=== PATIENT | female | born 1990 | race Caucasian/White ===

== ENCOUNTER 2023-08-28 08:44 | Outpatient (AMB) | payer OTHER, SELFPAY ==
--- NOTE | 2023-08-28 08:47 | MHC.PC.OV ---
Vital Signs 08/28/23 08:52 Height 5 ft 5 in Weight 272 lb BMI 45.3 BP 126/88 Blood Pressure Location Rt brachial Position Sitting Pulse 83 Pulse Source Pulse Oximeter Pulse Oximetry (%) 97 Oxygen Delivery Method Room Air Intake Visit Reasons: Manager Business Information Request PE Intake Note: Pt is here today as a New Patient/PE Is last menstrual period known: Yes Last menstrual period: 07/30/23 Allergies No Known Allergies Allergy (Verified 08/28/23 09:18) Medication List - Last Reconciled 08/28/23 by Niharika Argueta MD No Known Home Meds Tobacco use date assessed: 08/28/23 Dental Screening Dental Screen Date: 08/28/23 Did you have a dental visit in the last 12 months?: Yes Did you have a dental problem in the last 6 months where you did not have access to dental care?: No Was dental information given to patient?: Patient has dentist HPI Manager Business Information Request PE HPI Details 33-year-old lady with morbid obesity, here today to establish care with new PCP and for her physical exam. She has history of PCOS, hirsutism, previously on metformin and spironolactone, with last hemoglobin A1c at 5% on 09/11/2022. Stop metformin and spironolactone as it has not really been helping, and patient is trying to conceive by IVF. She also was initially on Ozempic and then switched to we go be for weight loss, lost approximately 70 lb, but had to discontinue medication as she was trying to conceive by IVF. She goes to [facility] in [place]. She had her cervical cancer screening and pelvic exam done at [facility]'s[facility] last 02/27/2022, which came back satisfactory for evaluation, negative for intraepithelial lesion or malignancy. She has been feeling well at present time with no other complaint. She is up-to-date with her hepatitis-B vaccination hepatitis-A MMR meaning coccal vaccine and varicella, had a negative PPD test 09/23/2018, has had COVID vaccination and flu shot but does not want to get updated COVID booster or the flu vaccine for this year. She is up-to-date with her Tdap, had it in 07/10/2016. [facility] Medical History Dental root implant present Morbid obesity PCOS (polycystic ovarian syndrome) Surgical History (Updated 08/28/23 @ 09:55 by Niharika Argueta MD) No pertinent past surgical history Family History Mother Gestational diabetes Coronary artery disease CVA (cerebral vascular accident) Maternal Uncle Diabetes mellitus Paternal Grandfather Coronary artery disease Social History (Updated 08/28/23 @ 10:07 by Niharika Argueta MD) Housing: House Patient Tobacco Use Status: Never used Tobacco e-Cigarette/Vaping Use: Never Used service: No Current occupational status: employed Sexually active: Yes Sexual orientation: Lesbian/Bates/Homosexual Cognitive needs: No Hearing needs: No Vision needs: Yes Female Reproductive History Menstrual Date of last menstrual period: 07/30/23 control method: none Date of last pap smear: 02/27/22 Questionnaire PHQ-9 Over the last 2 weeks, how often have you been bothered by any of the following problems? 1. Little interest or pleasure in doing things: not at all 2. Feeling down, depressed, or hopeless: not at all 3. Trouble falling or staying asleep, or sleeping too much: not at all 4. Feeling tired or having little energy: not at all 5. Poor appetite or overeating: not at all 6. Feeling bad about yourself - or that you are a failure or have let yourself or your family down: not at all 7. Trouble concentrating on things, such as reading the newspaper or watching television: not at all 8. Moving or speaking so slowly that other people could have noticed. Or the opposite - being so fidgety or restless that you have been moving around a lot more than usual: not at all 9. Thoughts that you would be better off or of hurting yourself in some way: not at all Total score: 0 Depression Screening Interpretation: Negative Depression Screening Done: Yes [id number] - PHQ-9 Billing: Yes Source: Developed by Drs. Sumit Lu, Dorcas Yates, Madi Morales and colleagues, with an educational sae from [employer]. Thrive Questionnaire Date Thrive assessed: 08/28/23 I am a: Patient What is your living situation today?: I have a steady place to live Within the past 12 months, did the food you bought not last and you didn't have the money to get more?: Never true Within the past 12 months, did you worry whether your food would run out before you got money to buy more?: Never true Do you have trouble paying for medicines?: No Do you have trouble getting transportation to medical appointments?: No Do you have trouble paying your heating and electricity bill?: No Do you have trouble taking care of your child, family member or friend?: No Do you have trouble with day-to-day activities such as bathing, preparing meals, shopping, managing finances, etc.?: No Are you currently unemployed and looking for a job?: No Are you interested in more education?: No AUDIT C Alcohol Use Questionnaire (AUDIT-C) 1. How often do you have a drink containing alcohol?: Monthly or less 2. How many drinks containing alcohol do you have on a typical day when you are drinking?: 1 or 2 3. How often do you have six or more drinks on one occasion?: Never Total Score: 1 JIMBO-7 AMB Questionnaire JIMBO-7 Date JIMBO - 7 assessed: 08/28/23 Feeling nervous, anxious, or on edge: 0 = Not at all Not being able to stop or control worryin = Not at all Worrying too much about different things: 0 = Not at all Trouble relaxin = Not at all Being so restless that it is hard to sit still: 0 = Not at all Becoming easily annoyed or irritable: 0 = Not at all Feeling afraid as if something awful might happen: 0 = Not at all Total JIMBO-7 score (0-4 normal; 5-9 mild; 10-14 moderate; 15-21 severe): 0 Source: Developed by Drs. Sumit Lu, Dorcas Yates, Madi Morales and colleagues, with an educational sae from [employer]. JIMBO-7 Assessment Billing JIMBO-7 Assessment Tool: JIMBO-7 Assessment 15077 Review of Systems Const Denies body aches, Denies fatigue, Denies fever(s), Denies headache(s) and Denies weakness Eyes Reports as per HPI ([facility], wears glasses when driving), Denies change in vision, Denies eye discharge, Denies itchy eyes and Reports requires corrective lenses ENT Denies dizziness, Denies headache(s), Denies nasal congestion, Denies nasal discharge and Denies sore throat Card Denies chest pain, Denies lightheadedness, Denies palpitations and Denies dyspnea Resp Denies chest congestion, Denies cough, Denies dyspnea and Denies wheezing GI Denies abdominal pain, Denies change in bowel habits and Denies heartburn Denies hematuria, Denies urinary frequency, Denies dysuria and Denies urinary urgency Musc Reports no additional complaints Skin/Breast Denies breast pain, Denies breast mass, Reports hirsutism (Chin area, arms), Denies lesions and Denies rash Neuro Denies dizziness, Denies headache(s) and Denies weakness Psych Reports no additional complaints Endo Denies fatigue, Denies polydipsia, Denies polyuria and Denies palpitations Smith/Lymph Denies easy bruising Aller/Immun Denies itchy eyes, Denies seasonal rhinorrhea and Denies wheezing Physical exam (Primary Care) Vital Signs: Last Vital Signs Pulse 83 08/28/23 08:52 BP 126/88 08/28/23 08:52 Pulse Ox 97 08/28/23 08:52 Oxygen Delivery Method Room Air 08/28/23 08:52 BMI result Body Mass Index 45.3 BMI Assessment/Plan discussion: High BMI High, discussed plan: lifestyle, weight reduction, dietary and physical activity Tobacco/Smoking Status: Tobacco use Status Tobacco use date assessed 08/28/23 08/28/23 09:05 Patient Tobacco Use Status Never used Tobacco 08/28/23 09:05 e-Cigarette/Vaping Use Never Used 08/28/23 09:05 PHQ-9: PHQ-9 Score PHQ-9: Total score 0 08/28/23 09:44 Depression Screening Interpretation: Negative Thrive Assessment: Date of Thrive Assessment Date Thrive assessed 08/28/23 08/28/23 09:13 Const General: no acute distress and alert Orientation/consciousness: patient oriented x3 HENMT Head: Yes normocephalic and Yes atraumatic Ears: external ears normal, TM's normal bilaterally and EAC's normal General nose exam: Normal external nose present and No nasal discharge present Face and sinus: Yes face symmetric Mouth: Normal oral and palatal mucosa present, tongue normal, oropharynx normal and moist mucous membranes Eyes General: appearance normal, both eyes and all related structures Eyelids: Yes eyelids normal Conjunctivae: conjunctivae normal Sclerae: sclerae normal Pupils: Equal, round and reactive pupils present EOM: EOMs intact bilaterally Neck Neck: Yes full ROM, Yes no lymphadenopathy and Yes supple Thyroid: Thyroid normal Chest Chest palpation & inspection: normal inspection of the chest and normal palpation of entire chest wall Breast/axilla inspection: normal inspection of the breasts Breast/axilla palpation: normal palpation of the breasts and normal palpation of the axillae Resp Effort & Inspection: normal respiratory effort and able to speak in complete sentences Auscultation: clear to auscultation bilaterally Cardio Rate: regular rate Rhythm: regular rhythm Heart sounds: S1 normal heart sound present and S2 normal heart sound present GI Inspection: Yes obesity Palpation (GI): Soft to palpation, nontender, no guarding and no masses Auscultation: normal bowel sounds General: Yes no CVA tenderness and Yes deferred (Last Pap done 2021, normal finding) Back/Spine/Pelvis Back: no CVA tenderness and No back tenderness Skin General skin exam: no rashes or lesions noted Neuro General: patient oriented x3, gait normal, moves all extremities, Normal light touch and pain sensation, no focal motor deficits and CN's II-XI intact bilaterally Cranial nerves: Yes Equal, round and reactive pupils present Cognition (Neuro): normal cognition Gait exam (Neuro): Normal gait present Motor exam (neuro): 5/5 motor strength present throughout Extrem General: Yes normal to inspection, Yes full ROM, Yes no joint enlargement, Yes no pedal edema and Yes normal gait Psych Appearance: grossly normal and well kempt Mental Status: mental status grossly normal Speech and movement: Normal speech and movement present Affect: normal affect Attitude: cooperative Thought process: Normal thought process present Thought content: Normal thought content present Assessment and Plan Assessment & Plan (1) Annual visit for general adult medical examination with abnormal findings: Code(s): Z00.01 - Encounter for general adult medical examination with abnormal findings Plan: Will check appropriate labs. Continue with regular dental visit every 6 months and regular eye exams, at least every 2 years, currently up-to-date, went to [facility]. Take adequate calcium in diet and vitamin-D 3 at 2000 IU per cap once a day, in addition to weight-bearing exercises to help maintain good muscle tone and weight control. Instructed to do self-breast exam, and recommended to get yearly mammogram, starting at age 40. Declined getting COVID booster or flu shot on today's visit, up-to-date with her Tdap. EKG done today showed normal findings (2) PCOS (polycystic ovarian syndrome): Code(s): E28.2 - Polycystic ovarian syndrome Plan: Continue with weight loss through diet and exercise, currently off metformin and spironolactone, which was not helping her patient, currently going to [facility] (3) Morbid obesity: Code(s): E66.01 - Morbid (severe) obesity due to excess calories Plan: recommended focusing on improving your health instead of dieting. : Eat Mediterranean diet, limit foods high in fat, sugar, and calories, eat slowly, pay attention to portion sizes, plan your meals ahead of time, start regular physical activity 150 minutes of moderate intensity exercise or 90 minutes/week of vigorous exercise and increase water intake. Orders: Orders Comprehensive [place]. Panel Fast Today E28.2 - Polycystic ovarian syndrome, E66.01 - Morbid (severe) obesity due to excess calories, Z00.01 - Encounter for general adult medical examination with abnormal findings Lipid Panel Today E28.2 - Polycystic ovarian syndrome, E66.01 - Morbid (severe) obesity due to excess calories, Z00.01 - Encounter for general adult medical examination with abnormal findings TSH reflex Free T4 Today E28.2 - Polycystic ovarian syndrome, E66.01 - Morbid (severe) obesity due to excess calories, Z00.01 - Encounter for general adult medical examination with abnormal findings Vitamin D 25-OH Total Today E28.2 - Polycystic ovarian syndrome, E66.01 - Morbid (severe) obesity due to excess calories, Z00.01 - Encounter for general adult medical examination with abnormal findings Vitamin B12 and Folate Today E28.2 - Polycystic ovarian syndrome, E66.01 - Morbid (severe) obesity due to excess calories, Z00.01 - Encounter for general adult medical examination with abnormal findings AMB EKG-In Office Today E66.01 - Morbid (severe) obesity due to excess calories, Z00.01 - Encounter for general adult medical examination with abnormal findings, Z13.6 - Encounter for screening for cardiovascular disorders Complete Blood Count Auto Diff Today E28.2 - Polycystic ovarian syndrome, E66.01 - Morbid (severe) obesity due to excess calories, Z00.01 - Encounter for general adult medical examination with abnormal findings Review Flu Vaccine not done: patient reason (Patient declined) Coding Level of Care Code New Pt Prev Care 18-39yr([id number] Diagnoses Annual visit for general adult medical examination with abnormal findings Z00.01 PCOS (polycystic ovarian syndrome) E28.2 Morbid obesity E66.01 Additional Codes JIMBO-7 Assessment Billing - JIMBO-7 Assessment Tool: JIMBO-7 Assessment 88884 ([id number])
[2023-08-28 08:52] VITALS: BP 126/88; PULSE 83; O2SAT 97; BMI 45.3
== END 2023-08-28 10:32 | disposition home or self-care (01) ==
PROVIDERS: PCP Internal Medicine; Visit Provider Internal Medicine
DX: Z00.00 Encounter for general adult medical examination without abnormal findings (principal); E28.2 Polycystic ovarian syndrome; E66.01 Morbid (severe) obesity due to excess calories; Z68.42 Body mass index [BMI] 45.0-49.9, adult
CPT/HCPCS: 93000; 99385

== ENCOUNTER 2023-08-28 10:05 | Outpatient (REF) | payer OTHER, SELFPAY ==
[2023-08-28 13:11] LABS: MANUAL DIFF FLAG NO
[2023-08-28 13:17] LABS: Basophils Percent Auto 0.3 % (0-2); Eosinophils Percent Auto 0.3 % (0-4); Hematocrit 41.7 % (37.0-47.0); Hemoglobin 13.4 g/dl (12.0-16.0); Imm Gran Abs Auto 0.03 X10*3/uL (0.00-0.03); Imm Gran Pct Auto 0.3 % (0.0-0.4); Lymphocytes Absolute Auto 2.8 X10*3/uL (1.2-4.9); Lymphocytes Percent Auto 32.8 % (20-40); Mean Corpuscular HGB Conc 32.1 g/dl (31.0-35.0); Mean Corpuscular Hemoglobin 29.1 pg (27.0-33.0); Mean Corpuscular Volume 90.7 fL (80.0-98.0); Mean Platelet Volume 10.9 fL (9.4-12.3); Monocytes Absolute Auto 0.5 X10*3/uL (0.1-1.2); Monocytes Percent Auto 5.7 % (2-11); Neutrophils Absolute Auto 5.2 x10*3/uL (2.0-8.3); Neutrophils Percent Auto 60.6 % (45-73); Platelet Count 395 X10*3/uL (160-400); Red Cell Distribution Width 13.1 % (11.0-16.0); White Blood Count 8.6 X10*3/uL (4.8-10.8)
[2023-08-28 13:32] LABS: Alanine Aminotransferase 26 U/L (0-31); Albumin Level 4.3 g/dL (3.5-5.0); Alkaline Phosphatase 69 U/L (39-117); Anion Gap 14 (12-20); Aspartate Amino Transferase 24 U/L (5-31); Bilirubin Total 0.6 mg/dL (0.0-1.0); Blood Urea Nitrogen 12 mg/dL (9-16); Calcium 9.4 mg/dL (8.4-10.2); Carbon Dioxide 23 mmol/L (22-29); Chloride 106 mmol/L (96-108); Cholesterol 192 mg/dL (<200); Estimated Glomerular Filt Rate > 60; Glucose Fasting 92 mg/dL (60-99); HDL Cholesterol 43 mg/dL (>40); LDL Cholesterol Calculated 108 mg/dL (<100); Sodium 139 mmol/L (135-145); Total Protein 7.6 g/dL (6.5-8.0); Triglycerides 205 mg/dL (<150)
[2023-08-28 13:51] LABS: Vitamin D 25-OH Total 17.4 ng/mL (>30)
[2023-08-28 14:13] LABS: Folate 7.2 ng/mL (> or = 4.0)
[2023-08-29 14:23] LABS: Vitamin B12 248 pg/mL (200-900)
== END 2023-08-28 10:06 | disposition home or self-care (01) ==
LOC: HO.HMGCLDS 10:05
PROVIDERS: PCP Internal Medicine; Visit Provider Internal Medicine
DX: Z00.01 Encounter for general adult medical examination with abnormal findings (principal); E66.01 Morbid (severe) obesity due to excess calories; E28.2 Polycystic ovarian syndrome
CPT/HCPCS: 36415; 80053; 80061; 82306; 82607; 82746; 84443; 85025

== ENCOUNTER 2024-10-13 13:26 | Outpatient (AMB) | payer BC, SELFPAY ==
--- NOTE | 2024-10-13 13:29 | MHC.PC.OV ---
Vital Signs 10/13/24 13:32 Height 5 ft 5 in Weight 279 lb BMI 46.4 BP 120/78 Blood Pressure Location Lt brachial Position Sitting Respiration 16 Pulse 116 H Pulse Source Pulse Oximeter Temp 97.8 F Temp Source Oral Pulse Oximetry (%) 95 Oxygen Delivery Method Room Air Intake Visit Reasons: Annual PE Intake Note: Pt is here today for her PE: Last papsmear 02/27/22 Allergies No Known Allergies Allergy (Verified 10/13/24 13:49) Medication List - Last Reconciled 10/13/24 by Niharika Argueta MD doxycycline monohydrate mg PO metformin 1000mg po BID [nature's Bounty 1 cap PO DAILY] Tobacco use date assessed: 10/13/24 Dental Screening Dental Screen Date: 10/13/24 Was dental information given to patient?: Patient has dentist [facility] Medical History Dental root implant present Morbid obesity PCOS (polycystic ovarian syndrome) Surgical History (Updated 08/28/23 @ 09:55 by Niharika Argueta MD) No pertinent past surgical history Family History Mother Gestational diabetes Coronary artery disease CVA (cerebral vascular accident) Maternal Uncle Diabetes mellitus Paternal Grandfather Coronary artery disease Social History (Updated 08/28/23 @ 10:07 by Niharika Argueta MD) Housing: House Patient Tobacco Use Status: Never used Tobacco e-Cigarette/Vaping Use: Never Used service: No Current occupational status: employed Sexual orientation: Lesbian/Bates/Homosexual Cognitive needs: No Hearing needs: No Vision needs: Yes Questionnaire PHQ-9 Over the last 2 weeks, how often have you been bothered by any of the following problems? 1. Little interest or pleasure in doing things: not at all 2. Feeling down, depressed, or hopeless: not at all 3. Trouble falling or staying asleep, or sleeping too much: not at all 4. Feeling tired or having little energy: not at all 5. Poor appetite or overeating: not at all 6. Feeling bad about yourself - or that you are a failure or have let yourself or your family down: not at all 7. Trouble concentrating on things, such as reading the newspaper or watching television: not at all 8. Moving or speaking so slowly that other people could have noticed. Or the opposite - being so fidgety or restless that you have been moving around a lot more than usual: not at all 9. Thoughts that you would be better off or of hurting yourself in some way: not at all Total score: 0 Source: Developed by Drs. Sumit Lu, Dorcas Yates, Madi Morales and colleagues, with an educational sae from [employer]. Thrive Questionnaire Date Thrive assessed: 10/13/24 I am a: Patient What is your living situation today?: I have a steady place to live Within the past 12 months, did the food you bought not last and you didn't have the money to get more?: Never true Within the past 12 months, did you worry whether your food would run out before you got money to buy more?: Never true Do you have trouble paying for medicines?: No Do you have trouble getting transportation to medical appointments?: No Do you have trouble paying your heating and electricity bill?: No Do you have trouble taking care of your child, family member or friend?: No Do you have trouble with day-to-day activities such as bathing, preparing meals, shopping, managing finances, etc.?: No Are you currently unemployed and looking for a job?: No Are you interested in more education?: No Please select the resources that you would like help with: None Currently or been in a relationship where the following occur: No concerns reported THRIVE Score: 0 AUDIT C Alcohol Use Questionnaire (AUDIT-C) 1. How often do you have a drink containing alcohol?: Monthly or less 2. How many drinks containing alcohol do you have on a typical day when you are drinking?: 1 or 2 3. How often do you have six or more drinks on one occasion?: Never Total Score: 1 JIMBO-7 AMB Questionnaire JIMBO-7 Date JIMBO - 7 assessed: 10/13/24 Feeling nervous, anxious, or on edge: 0 = Not at all Not being able to stop or control worryin = Not at all Worrying too much about different things: 0 = Not at all Trouble relaxin = Not at all Being so restless that it is hard to sit still: 0 = Not at all Becoming easily annoyed or irritable: 0 = Not at all Feeling afraid as if something awful might happen: 0 = Not at all Total JIMBO-7 score (0-4 normal; 5-9 mild; 10-14 moderate; 15-21 severe): 0 Source: Developed by Drs. Sumit Lu, Dorcas Yates, Madi Morales and colleagues, with an educational sae from [employer]. Physical exam (Primary Care) Vital Signs: Last Vital Signs Temp 97.8 F 10/13/24 13:32 Pulse 116 H 10/13/24 13:32 Resp 16 10/13/24 13:32 BP 120/78 10/13/24 13:32 Pulse Ox 95 10/13/24 13:32 Oxygen Delivery Method Room Air 10/13/24 13:32 BMI result Body Mass Index 46.4 Tobacco/Smoking Status: Tobacco use Status Tobacco use date assessed 10/13/24 10/13/24 13:37 Patient Tobacco Use Status Never used Tobacco 10/13/24 13:29 e-Cigarette/Vaping Use Never Used 10/13/24 13:29 PHQ-9: PHQ-9 Score PHQ-9: Total score 0 10/13/24 14:23 Thrive Assessment: Date of Thrive Assessment Date Thrive assessed 10/13/24 10/13/24 13:37 Currently or been in a relationship where the following occur: No concerns reported Office Procedures Flu Questionnaire Does the patient have a severe egg allergy?: No Does the patient have severe life threatening allergies?: No Does the patient have a fever or illness today?: No Has the patient ever had Guillain-Tyndall Syndrome?: No Has the patient ever had any past reaction to a flu shot?: No Immunizations Fluarix Triv [id number] (PF) 45 mcg (15 mcg x 3)/0.5 mL IM syringe Performing Provider: Niharika Argueta MD Performing Location: [facility] Administered by: Yenny Suárez CMA on 10/13/24 15:30 Dose Route Admin Location Dispensed Lot Number Expiration Date [facility] Director Of Aviation 0.5 mL IM Left Deltoid 0.5 mL [id number] 03/02/25 [id number] [employer] VIS Given Date VIS Provided VIS Publication Date 10/13/24 Single Vaccine 21 Eligibility Eligibility Date Funding Source Not [facility] Eligible 10/13/24 Private Coding Diagnoses PCOS (polycystic ovarian syndrome) E28.2 Morbid obesity E66.01 Encounter for counseling regarding advance directives Z71.89 Annual visit for general adult medical examination with abnormal findings Z00.01 Assessment & Plan Assessment & Plan (1) PCOS (polycystic ovarian syndrome): Code(s): E28.2 - Polycystic ovarian syndrome Category: Medical (2) Morbid obesity: Code(s): E66.01 - Morbid (severe) obesity due to excess calories Category: Medical (3) Encounter for counseling regarding advance directives: Code(s): Z71.89 - Other specified counseling (4) Annual visit for general adult medical examination with abnormal findings: Code(s): Z00.01 - Encounter for general adult medical examination with abnormal findings Orders: Orders Vitamin D 25-OH Total Today E28.2 - Polycystic ovarian syndrome, E66.01 - Morbid (severe) obesity due to excess calories, Z00.01 - Encounter for general adult medical examination with abnormal findings, Z13.220 - Encounter for screening for lipoid disorders, Z71.89 - Other specified counseling TSH reflex Free T4 Today E28.2 - Polycystic ovarian syndrome, E66.01 - Morbid (severe) obesity due to excess calories, Z00.01 - Encounter for general adult medical examination with abnormal findings, Z13.220 - Encounter for screening for lipoid disorders, Z71.89 - Other specified counseling Lipid Panel Today E28.2 - Polycystic ovarian syndrome, E66.01 - Morbid (severe) obesity due to excess calories, Z00.01 - Encounter for general adult medical examination with abnormal findings, Z13.220 - Encounter for screening for lipoid disorders, Z71.89 - Other specified counseling Influenza [id number] Immunization Today Z23 - Encounter for immunization
[2024-10-13 13:32] VITALS: BP 120/78; PULSE 116; RESP 16; TEMP 36.6; O2SAT 95; BMI 46.4
== END 2024-10-13 14:39 | disposition home or self-care (01) ==
PROVIDERS: PCP Internal Medicine; Visit Provider Internal Medicine
DX: Z23 Encounter for immunization (principal)

== ENCOUNTER → 2024-10-13 13:26 | Outpatient (BNVA) | payer BC, SELFPAY | PROVIDERS: PCP Internal Medicine; Visit Provider Internal Medicine | DX: Z00.01 Encounter for general adult medical examination with abnormal findings (principal); Z23 Encounter for immunization; E28.2 Polycystic ovarian syndrome; E66.01 Morbid (severe) obesity due to excess calories; Z68.42 Body mass index [BMI] 45.0-49.9, adult; Z71.89 Other specified counseling | CPT/HCPCS: 90471; 90656; 96127 ==